=== PATIENT | female | born 1995 | race Caucasian/White ===

== ENCOUNTER 2021-07-05 14:27 | Emergency (ER) | payer MEDICAID, SELFPAY ==
--- NOTE | ~2021-07-05 | CT_ITS ---
EXAMINATION: CT ABDOMEN AND PELVIS WITH CONTRAST CLINICAL INFORMATION: Right upper quadrant/epigastric pain. COMPARISON: None TECHNIQUE: Multidetector volumetric images were obtained from the superior aspect of the liver through the pubic symphysis following administration 85 mL of Omnipaque 350 intravenous contrast. Sagittal and coronal reformatted images were obtained on the technologist's workstation. Oral contrast: No This CT examination was performed using dose optimization techniques as appropriate, variously including the following: *Automated exposure control *Adjustment of mA and/or kV according to patient size (this includes techniques or standardized protocols for targeted exams where dose is matched to indication/reason for exam; i.e. extremities or head) *Use of iterative reconstruction technique DLP: 591 mGy-cm FINDINGS: LUNG BASES: Lung bases are clear. The heart size is normal. LIVER, GALLBLADDER, AND BILIARY TREE: The liver is normal in size, shape, and attenuation. No focal hepatic lesion or biliary ductal dilatation is present. The gallbladder is unremarkable with no evidence of radiopaque gallstones, gallbladder wall thickening, or obvious pericholecystic inflammatory changes. PANCREAS: Unremarkable. SPLEEN: Unremarkable. ADRENAL GLANDS: Unremarkable. KIDNEYS AND URETERS: The kidneys are normal in size, shape, and attenuation. No hydronephrosis, hydroureter, or calculi seen. No perinephric stranding. BLADDER: Unremarkable. GASTROINTESTINAL TRACT: There is scattered stool and gas seen throughout the colon most prominent in the ascending and transverse colon without significant distention. The appendix and the small bowel loops are normal caliber. No inflammatory process seen in the abdomen. There is no free air or free fluid. ABDOMINAL WALL: No significant hernia is appreciated. LYMPH NODES: Normal. VASCULAR: Unremarkable. PELVIC VISCERA: The uterus is retroverted and appears unremarkable. There is small cyst with enhancing thin wall measuring 1.8 x 1.7 cm right adnexa. There is no free fluid. OSSEOUS STRUCTURES: No aggressive lytic or sclerotic process seen. CT/CT abdomen pelvis w con IMPRESSION: No acute intra-abdominal process seen. Fleischner guidelines were followed.
[2021-07-05 14:36] VITALS: BP 131/83; PULSE 80; RESP 16; TEMP 36.4; O2SAT 99; BMI 37.2
--- NOTE | 2021-07-05 16:13 | ED.ABDPAIN ---
HPI - Abdominal Pain General Chief Complaint: Abdominal Pain Stated Complaint: abd pain Time Seen by Provider: 07/05/21 15:59 Source: patient Mode of arrival: ambulatory Limitations: no limitations History of Present Illness HPI narrative: This is a 25-year-old female no significant medical history presents to the emergency department with abdominal pain since last night. Patient tells me that the pain is intermittent in nature, localized to her epigastric region and to her right upper quadrant, she tells me it is a squeezing/stabbing sensation. She tells me before last night she has had episodes like this before however they have never been this severe. She tells me she is also having associated nausea. She still has her appendix and her gallbladder. No history of kidney stones. She denies chest pain, shortness of breath, fevers, chills, chances of , vomiting, weakness he MD elicited complaint: abdominal pain Pertinent past history: none Onset (ago): day(s) (2) Pain Consistency: constant Location: epigastric Severity: moderate Quality: stabbing Radiation: none Migration to: no migration Exacerbating factors: nothing Relieving factors: nothing Associated symptoms: nausea Related Data Previous Rx's Medication Instructions Recorded omeprazole 20 mg capsule,delayed 20 mg PO DAILY #30 cap 07/05/21 release ondansetron 4 mg disintegrating 4 mg PO ONCE PRN #10 tab 07/05/21 tablet Allergies Allergy/AdvReac Type Severity Reaction Status Date / Time No Known Allergies Allergy Unverified 01/04/20 16:47 Review of Systems Review of Systems Constitutional : No Weight loss, No Fever, No Chills, No Fatigue, No Malaise ENT/Mouth : No sore throat, No Rhinorrhea Eyes: No Eye Pain, No Swelling, No Redness Cardiovascular : No Chest Pain, No SOB, No Dyspnea on Exertion, No Orthopnea, No Edema, No Palpitations Respiratory : No Cough, No Sputum, No Wheezing Gastrointestinal : + Nausea, No Vomiting, No Diarrhea, No Constipation, No abdominal Pain, No Hematochezia, No Melena Genitourinary : No Dysuria, No Urinary Frequency, No Hematuria, Musculoskeletal : No joint pain, No Myalgias, No Joint Swelling Skin : No Skin Lesions, No rash Neuro : No Weakness, No Numbness, No Dizziness, No Headache Psych : No Anxiety/Panic, No Depression All other systems reviewed and are negative Yes all other systems are reviewed and are negative [facility] Past Medical History Attestation statement: The following information was validated with the patient. Source: old records reviewed and nursing notes reviewed Medical History (Updated 07/05/21 @ 17:27 by LULU Roland) No known health problems Pre-eclampsia complicating hypertension Social History Social History Advance Directives: No Advance Directives Information Provided: No Patient : No Physical Exam ED Vital Signs: Vital Signs - 24 hr 07/05/21 14:36 07/05/21 16:18 Temperature 97.5 F 98.7 F Pulse Rate 80 67 Respiratory Rate 16 16 Blood Pressure 131/83 134/81 Pulse Oximetry 99 100 BMI result Body Mass Index 37.2 Vital signs stable. Appearance: Alert.? Oriented X3.? No acute distress.? Head: Normocephalic, atraumatic, no step-offs or deformities Eyes: Pupils equal, round and reactive to light.? ENT: Pharynx normal.? Neck: Normal inspection.? Neck supple.? CVS: Normal heart rate and rhythm.? Pulses normal.? Respiratory: No respiratory distress.? Breath sounds normal.? Abdomen: Soft and + tenderness right upper quadrant and epigastric region. Skin: Skin warm and dry.? Normal skin color.? Normal skin turgor.? Extremities: No lower extremity edema.? No calf ttp. 5/5 strength to bilateral upper and lower extremities Back: No midline tenderness, no C-spine tenderness, full range of motion, no CVA tenderness bilaterally Neuro: Oriented X 3.? No motor deficit.? No sensory deficit. CN 2-12 intact Course Reevaluation(s) Reevaluation #1: CBC appears to be at patient's baseline. Chemistry within normal limits. Transaminases normal. Lipase normal. CT of the abdomen and pelvis pending. Urine pending. Will continue to monitor. Time: 16:46 Reevaluation #2: Urine negative urine negative CT of the abdomen and pelvis within normal limits. The CT shows a normal appendix, gallbladder appears normal. At this time patient will be discharged home with omeprazole and Zofran. As this is likely gastritis/gastric ulcers. I have given her follow-up with GI advised her to call if symptoms do not improve. I also advised her to follow-up with her PCP. Time: 18:14 [facility] - Abdominal Pain MDM Narrative Medical decision making narrative: 1616 25 yo f no pmhx presents w/ epigastric pain/RUQ pain since last night, intermittent in nature. Has had previous episodes in the past. PE pain with palpation of epigastric/right upper quadrant. Lungs clear. Regular rate rhythm. No CVA tenderness bilaterally. Likely diagnosis gastritis, unlikely cholecystitis, appendicitis, or pyelo. I will obtain labs, imaging and urine. Medical Records Attestation: I reviewed the patient's medical records. Lab Data Attestation: I reviewed the patient's lab results. Result diagrams: 07/05/21 16:01 07/05/21 16:01 Labs: Lab Results 07/05/21 07/05/21 07/05/21 Range/Units 16:01 16:01 16:01 WBC 10.2 (4.8-10.8) X10*3/uL RBC 4.73 (4.20-5.50) X10*6/uL Hgb 12.4 (12.0-16.0) g/dl Hct 39.3 (37.0-47.0) % MCV 83.1 (80.0-98.0) fL MCH 26.2 L (27.0-33.0) pg MCHC 31.6 (31.0-35.0) g/dl RDW 15.3 (11.0-16.0) % Plt Count 218 (160-400) X10*3/uL MPV 11.4 (9.4-12.3) fL Immature Gran % (Auto) 0.3 (0.0-0.4) % Neut % (Auto) 73.3 H (45-73) % Lymph % (Auto) 19.2 L (20-40) % [place] % (Auto) 6.4 (2-11) % Eos % (Auto) 0.7 (0-4) % Baso % (Auto) 0.1 (0-2) % Lymph # (Auto) 2.0 (1.2-4.9) X10*3/uL [place] # (Auto) 0.7 (0.1-1.2) X10*3/uL Eos # (Auto) 0.1 (0.0-0.4) X10*3/uL Baso # (Auto) 0.0 (0.0-0.2) X10*3/uL Abs Immat Gran (auto) 0.03 (0.00-0.03) X10*3/uL Absolute Neuts (auto) 7.5 (2.0-8.3) x10*3/uL Absolute Nucleated RBC 0.000 (0.0-0.012) X10*3/uL Nucleated RBC % (auto) 0.0 (0.0-0.2) /100WBC Sodium 140 (135-145) mmol/L Potassium 4.0 (3.3-5.1) mmol/L Chloride 106 (96-108) mmol/L Carbon Dioxide 24 (22-29) mmol/L Anion Gap 14 (12-20) BUN 11 (9-16) mg/dL Creatinine 0.79 (0.5-1.4) mg/dL Estim Creat Clear Calc 126.1 Estimated GFR > 60 Random Glucose 91 (60-115) mg/dL Calcium 9.6 (8.4-10.2) mg/dL Magnesium 1.9 (1.6-2.6) mg/dL Total Bilirubin 0.4 (0.0-1.0) mg/dL AST 16 (5-31) U/L ALT 21 (0-31) U/L Alkaline Phosphatase 115 (39-117) U/L Total Protein 7.5 (6.5-8.0) g/dL Albumin 4.5 (3.5-5.0) g/dL Lipase 17 (8-78) U/L Urine Color Urine Appearance Urine pH (5.0-8.0) Ur Specific [place] (1.005-1.025) Urine Protein (NEG-TRACE) MG/DL Urine Glucose (UA) (NEG) MG/DL Urine Ketones (NEG) MG/DL Urine Blood (NEG) Urine Nitrite (NEG) Ur Leukocyte Esterase (NEG) Urine RBC (0) /HPF Urine WBC (0-4) /HPF Ur Squamous Epith Cells /LPF Urine Bacteria /LPF Urine Test (NEGATIVE) COVID-19 (ASHLEY) Negative (Negative) COVID-19 Clin Com See Note 07/05/21 07/05/21 Range/Units 16:37 16:37 WBC (4.8-10.8) X10*3/uL RBC (4.20-5.50) X10*6/uL Hgb (12.0-16.0) g/dl Hct (37.0-47.0) % MCV (80.0-98.0) fL MCH (27.0-33.0) pg MCHC (31.0-35.0) g/dl RDW (11.0-16.0) % Plt Count (160-400) X10*3/uL MPV (9.4-12.3) fL Immature Gran % (Auto) (0.0-0.4) % Neut % (Auto) (45-73) % Lymph % (Auto) (20-40) % [place] % (Auto) (2-11) % Eos % (Auto) (0-4) % Baso % (Auto) (0-2) % Lymph # (Auto) (1.2-4.9) X10*3/uL [place] # (Auto) (0.1-1.2) X10*3/uL Eos # (Auto) (0.0-0.4) X10*3/uL Baso # (Auto) (0.0-0.2) X10*3/uL Abs Immat Gran (auto) (0.00-0.03) X10*3/uL Absolute Neuts (auto) (2.0-8.3) x10*3/uL Absolute Nucleated RBC (0.0-0.012) X10*3/uL Nucleated RBC % (auto) (0.0-0.2) /100WBC Sodium (135-145) mmol/L Potassium (3.3-5.1) mmol/L Chloride (96-108) mmol/L Carbon Dioxide (22-29) mmol/L Anion Gap (12-20) BUN (9-16) mg/dL Creatinine (0.5-1.4) mg/dL Estim Creat Clear Calc Estimated GFR Random Glucose (60-115) mg/dL Calcium (8.4-10.2) mg/dL Magnesium (1.6-2.6) mg/dL Total Bilirubin (0.0-1.0) mg/dL AST (5-31) U/L ALT (0-31) U/L Alkaline Phosphatase (39-117) U/L Total Protein (6.5-8.0) g/dL Albumin (3.5-5.0) g/dL Lipase (8-78) U/L Urine Color YELLOW Urine Appearance HAZY Urine pH 6.5 (5.0-8.0) Ur Specific [place] 1.020 (1.005-1.025) Urine Protein NEG (NEG-TRACE) MG/DL Urine Glucose (UA) NEG (NEG) MG/DL Urine Ketones 5 (NEG) MG/DL Urine Blood NEG (NEG) Urine Nitrite NEG (NEG) Ur Leukocyte Esterase NEG (NEG) Urine RBC 0 (0) /HPF Urine WBC 0-2 (0-4) /HPF Ur Squamous Epith Cells 2+ /LPF Urine Bacteria 1+ /LPF Urine Test NEGATIVE (NEGATIVE) COVID-19 (ASHLEY) (Negative) COVID-19 Clin Com Critical Care Time Critical Care Time Critical Care Time: No Discharge Plan Discharge Clinical Impression: Epigastric abdominal pain Patient Disposition: Home, Self-Care Instructions: Diet for Stomach Ulcers and Gastritis (ED), Abdominal Pain (ED), Epigastric Pain (ED) Additional Instructions: Take your medications as prescribed. If you were prescribed antibiotics today, it is important that you take your medication to their entirety, do not skip any doses, do not finish them early. Follow-up with your primary care provider this week. Please follow up with GI if this issue continues. As you may require further imaging/lab work. Please follow a bland diet. Return to the emergency department with new or worsening symptoms. Such as fevers, chills, chest pain, shortness of breath, nausea, vomiting, dizziness, headache, vision changes, lethargy In case of emergency call 911 Prescriptions: New omeprazole 20 mg capsule,delayed release(DR/EC) 20 mg PO DAILY Qty: 30 0RF ondansetron 4 mg tablet,disintegrating 4 mg PO ONCE PRN (Reason: nausea and vomiting) Qty: 10 0RF Referrals: Sundar Griffith MD [Physician] - 1 week Physician,Katiuska J [Primary Care Provider] - 2 days Stand Alone Forms: Work/School Release
[2021-07-05 16:18] VITALS: BP 134/81; PULSE 67; RESP 16; TEMP 37.1; O2SAT 100
[2021-07-05 16:21] LABS: MANUAL DIFF FLAG NO
[2021-07-05 16:23] LABS: Basophils Percent Auto 0.1 % (0-2); Eosinophils Absolute Auto 0.1 X10*3/uL (0.0-0.4); Eosinophils Percent Auto 0.7 % (0-4); Hematocrit 39.3 % (37.0-47.0); Hemoglobin 12.4 g/dl (12.0-16.0); Imm Gran Abs Auto 0.03 X10*3/uL (0.00-0.03); Imm Gran Pct Auto 0.3 % (0.0-0.4); Lymphocytes Percent Auto 19.2 % (20-40); Mean Corpuscular HGB Conc 31.6 g/dl (31.0-35.0); Mean Corpuscular Hemoglobin 26.2 pg (27.0-33.0); Mean Corpuscular Volume 83.1 fL (80.0-98.0); Mean Platelet Volume 11.4 fL (9.4-12.3); Monocytes Absolute Auto 0.7 X10*3/uL (0.1-1.2); Monocytes Percent Auto 6.4 % (2-11); Neutrophils Absolute Auto 7.5 x10*3/uL (2.0-8.3); Neutrophils Percent Auto 73.3 % (45-73); Platelet Count 218 X10*3/uL (160-400); Red Blood Count 4.73 X10*6/uL (4.20-5.50); Red Cell Distribution Width 15.3 % (11.0-16.0); White Blood Count 10.2 X10*3/uL (4.8-10.8)
[2021-07-05 16:36] LABS: COVID-19 Test Negative (Negative); IDNOW Serial# 16C4AD1C
[2021-07-05 16:38] LABS: Alanine Aminotransferase 21 U/L (0-31); Albumin Level 4.5 g/dL (3.5-5.0); Alkaline Phosphatase 115 U/L (39-117); Anion Gap 14 (12-20); Aspartate Amino Transferase 16 U/L (5-31); Bilirubin Total 0.4 mg/dL (0.0-1.0); Blood Urea Nitrogen 11 mg/dL (9-16); Calcium 9.6 mg/dL (8.4-10.2); Carbon Dioxide 24 mmol/L (22-29); Chloride 106 mmol/L (96-108); Creatinine Clr Calc Pharmacy 126.1; Estimated Glomerular Filt Rate > 60; Glucose Random 91 mg/dL (60-115); Lipase 17 U/L (8-78); Magnesium 1.9 mg/dL (1.6-2.6); Sodium 140 mmol/L (135-145); Total Protein 7.5 g/dL (6.5-8.0)
[2021-07-05] MEDS: PHENobarb/Hyoscy/Atropine/Scop 10 ML ELIXIR PO (16:48)
[2021-07-05] MEDS: Magnesium Hydrox/Alum Hydrox 30 ML ORAL.SUSP PO (16:48)
[2021-07-05] MEDS: ondansetron HCL 4 MG/2 ML VIAL IVPUSH (16:48)
[2021-07-05 16:49] LABS: Appearance Urine HAZY; Color Urine YELLOW; Glucose Urine UA NEG (NEG); Leukocyte Esterase Urine NEG (NEG); Nitrite Urine NEG (NEG); PH 6.5 (5.0-8.0); Urine Blood NEG (NEG); Urine Ketones 5 MG/DL (NEG); Urine Protein NEG (NEG-TRACE)
[2021-07-05 16:51] LABS: UPreg QC Valid YES; Urine Pregnancy NEGATIVE (NEGATIVE)
[2021-07-05 16:56] LABS: Bacteria Urine 1+ /LPF; RBC Urine 0 /HPF (0); Squamous Epithelial Cell Urine 2+ /LPF; WBC Urine 0-2 /HPF (0-4)
[2021-07-05] MEDS: iohexoL 350 MG/ML 100 ML INFUS..BTL 85 ML IV (17:32)
== END 2021-07-05 18:26 | disposition home or self-care (01) ==
PROVIDERS: Physician Assistant; Emergency Provider Emergency Medicine
DX: R10.13 Epigastric pain (principal); Z20.822 Contact with and (suspected) exposure to COVID-19; R11.0 Nausea
CPT/HCPCS: 74177; 80053; 81001; 81025; 83690; 83735; 85025; 87635; 96374; 99284; 99285; J2405; Q9967

== ENCOUNTER 2024-08-24 19:15 | Emergency (ER) | payer OTHER, SELFPAY ==
--- NOTE | ~2024-08-24 | US_ITS ---
CLINICAL HISTORY: ?hydro US retroperitoneum Comparison: None Findings: Right kidney normal size and echotexture, 10.7cm length. No hydronephrosis. Normal color flow. Left kidney normal size and echotexture, 10.6 cm in length. No hydronephrosis. Normal color flow. By right lateral renal cortex echotexture and thickness is normal. Cortex thickness is 12 mm. No ultrasound evidence of renal calculi. Impression: Unremarkable kidney ultrasound. This document has been electronically signed by: Vijay Cancino MD on 08/24/2024 20:49:19
--- NOTE | 2024-08-24 19:19 | ED_ITS ---
HPI - General Adult General Chief complaint: Urogenital-Female Stated complaint: UTI possible kidney infection??? from UC Time Seen by Provider: 08/24/24 20:17 Source: patient Limitations: no limitations History of Present Illness ED Provider: Susan Patel PA-C HPI narrative: 28-year-old female presents with dysuria x 4 days. Associated mid back discomfort that has bilateral, right greater than left. Associated nausea initially, that has since subsided. Denies history of kidney stones, hematuria, or abdominal discomfort. Related Data Previous Rx's ?Medication ?Instructions ?Recorded omeprazole 20 mg capsule,delayed 20 mg PO DAILY #30 caps 07/05/21 release ondansetron 4 mg disintegrating 4 mg PO ONCE PRN nausea and 07/05/21 tablet vomiting #10 tabs cephalexin 500 mg capsule 500 mg PO BID #13 caps 08/24/24 phenazopyridine 200 mg tablet 200 mg PO TID PRN pain 3 days #10 08/24/24 (Pyridium) tabs Allergies Allergy/AdvReac Type Severity Reaction Status Date / Time No Known Allergies Allergy Verified 08/24/24 19:21 Review of Systems 2 Review of Systems: Yes all other systems are reviewed and are negative Constitutional: Constitutional: Denies fatigue and Denies fever(s) Cardiovascular: Cardiovascular: Denies chest pain and Denies dyspnea Respiratory: Respiratory: Denies cough and Denies dyspnea Gastrointestinal: Gastrointestinal: Denies abdominal pain, Reports nausea and Denies vomiting Genitourinary: Genitourinary: Reports dysuria Musculoskeletal: Musculoskeletal: Reports back pain Endocrine: Endocrine: Denies fatigue [facility] Past Medical History Attestation statement: The following information was validated with the patient. Medical History (Updated 08/24/24 @ 22:28 by LULU Leung) Pre-eclampsia complicating hypertension No known health problems Social History Social History Smoked in Last 30 Days: No Use of substances other than those prescribed or required for medical reasons: No Advance Directives: No Advance Directives Information Provided: No Patient : No Physical Exam ED Vital Signs: Vital Signs - 24 hr 08/24/24 19:20 Temperature 98.1 F Pulse Rate 84 Respiratory Rate 20 Blood Pressure 119/88 Pulse Oximetry 98 Oxygen Delivery Method Room Air BMI result Body Mass Index 39.5 Const Other: Alert well-appearing Orientation/consciousness: patient oriented x3 Resp Effort & Inspection: normal respiratory effort Cardio Other: Normal peripheral perfusion Back/Spine/Pelvis Other: Some degree of CVA tenderness bilaterally Skin Other: Warm dry no rash Neuro General: patient oriented x3, gait normal, no focal motor deficits and CN's II- XI intact bilaterally Psych Other: Cooperative Course Course Course Narrative: This is a rapid medical exam performed by Chito Jeffries NP: Additional HPI, ROS, PE not included below will be deferred to primary provider. 28 yo female without significant PMHx of presents to ED from for UTI concerns. recommended further evaluation from ED to R/O pyelonephritis. Patient states she has been having urinary symptoms x4 days. States yesterday she began experiencing B/L pain of her abdomen. States when provider at tapped on her back she had pain on the right side. She states she has had nausea since wednesday that has worsened over the past 48 hours. States she is currently on her menses and cannot tell if there is gross blood in her urine. Denies, vomiting, fever. PE: A&O x3, no acute distress, Plan:Labs, B/L renal US, UA, HCG quant Medications Administered Discontinued Medications Generic Name Dose Route Start Last Admin Trade Name Freq PRN Reason Stop Dose Admin Cephalexin HCl 500 mg 08/24/24 22:01 08/24/24 22:09 Cephalexin 500 Mg Capsule PO 08/24/24 22:02 500 mg ONCE ONE Administration Phenazopyridine HCl 200 mg 08/24/24 22:03 08/24/24 22:09 Phenazopyridine Hcl 200 Mg Tablet PO 08/24/24 22:04 200 mg ONCE ONE Administration Medical Decision Making Medical Decision Making [facility] Narrative: 28-year-old female presents with dysuria x 4 days. Associated mid back discomfort that has bilateral, right greater than left. Associated nausea initially, that has since subsided. Denies history of kidney stones, hematuria, or abdominal discomfort. No chronic issues History: Per patient I have considered the following differential diagnoses: UTI, pyelonephritis, renal colic Plan: Patient is not having systemic symptoms of fever or active vomiting, overall her exam was benign, screening labs completed, we just need a urine sample. A renal ultrasound was ordered from triage as well that is pending. I have independently reviewed the following tests: Labs: No leukocytosis, not anemic, no electrolyte abnormality, not , urine infected Renal ultrasound:Findings: Right kidney normal size and echotexture, 10.7cm length. No hydronephrosis. Normal color flow. Left kidney normal size and echotexture, 10.6 cm in length. No hydronephrosis. Normal color flow. By right lateral renal cortex echotexture and thickness is normal. Cortex thickness is 12 mm. No ultrasound evidence of renal calculi. Impression: Unremarkable kidney ultrasound. Lab Data 08/24/24 19:30 08/24/24 19:30 Labs: Lab Results 08/24/24 08/24/24 Range/Units 19:30 20:49 WBC 10.4 (4.8-10.8) X10*3/uL RBC 4.55 (4.20-5.50) X10*6/uL Hgb 12.6 (12.0-16.0) g/dl Hct 37.7 (37.0-47.0) % MCV 82.9 (80.0-98.0) fL MCH 27.7 (27.0-33.0) pg MCHC 33.4 (31.0-35.0) g/dl RDW 14.6 (11.0-16.0) % Plt Count 228 (160-400) X10*3/uL MPV 11.1 (9.4-12.3) fL Immature Gran % (Auto) 0.4 (0.0-0.4) % Neut % (Auto) 62.2 (45-73) % Lymph % (Auto) 26.3 (20-40) % [place] % (Auto) 9.2 (2-11) % Eos % (Auto) 1.4 (0-4) % Baso % (Auto) 0.5 (0-2) % Lymph # (Auto) 2.7 (1.2-4.9) X10*3/uL [place] # (Auto) 1.0 (0.1-1.2) X10*3/uL Eos # (Auto) 0.2 (0.0-0.4) X10*3/uL Baso # (Auto) 0.1 (0.0-0.2) X10*3/uL Abs Immat Gran (auto) 0.04 H (0.00-0.03) X10*3/uL Absolute Neuts (auto) 6.5 (2.0-8.3) x10*3/uL Absolute Nucleated RBC 0.000 (0.0-0.012) X10*3/uL Nucleated RBC % (auto) 0.0 (0.0-0.2) /100WBC Sodium 142 (135-145) mmol/L Potassium 3.9 (3.3-5.1) mmol/L Chloride 108 (96-108) mmol/L Carbon Dioxide 26 (22-29) mmol/L Anion Gap 12 (12-20) BUN 12 (9-16) mg/dL Creatinine 0.77 (0.5-1.4) mg/dL Estim Creat Clear Calc 130.2 Estimated GFR > 60 Random Glucose 90 (60-115) mg/dL Calcium 9.5 (8.4-10.2) mg/dL Total Bilirubin 0.3 (0.0-1.0) mg/dL AST 23 (5-31) U/L ALT 24 (0-31) U/L Alkaline Phosphatase 102 (39-117) U/L Total Protein 7.7 (6.5-8.0) g/dL Albumin 4.3 (3.5-5.0) g/dL Beta HCG, Quant < 2 mIU/mL Urine Color Yellow Urine Appearance Clear Urine pH 7.0 (5.0-9.0) Ur Specific [place] 1.020 (1.005-1.025) Urine Protein 100 (2+) H (Neg-Trace) mg/dL Urine Glucose (UA) Negative (Negative) mg/dL Urine Ketones Negative (Negative) mg/dL Urine Blood Large (3+) H (Negative) Urine Nitrite Negative (Negative) Ur Leukocyte Esterase Moderate (2+) H (Negative) Urine RBC >20 H (0-2) /HPF Urine WBC >50 H (0-5) /HPF Ur Squamous Epith Cells 0-2 (0-2) /HPF Urine Bacteria 4+ (None Seen) Hyaline Casts 0-2 (0-2) /LPF Discharge Plan Discharge Clinical Impression: Urinary tract infection, Back pain, thoracic Patient Disposition: Home, Self-Care Instructions: Urinary Tract Infection in Women (ED), Thoracic Pain (ED) Additional Instructions: The ultrasound of your kidneys was normal, you have a urinary tract infection. See home care instructions. For your mid back pain, which is not related to the kidneys, you can use [id number] ibuprofen 600 mg taken every 6 hours with food. Take the cephalexin as directed this is an antibiotic to treat the urinary tract infection. Use the Pyridium as needed for urinary pain, to note this medication will cause your urine to become fluorescent orange, these symptoms will pass. Be sure to increase your water intake, drinking 96 oz of water daily. Follow up with your primary care provider as needed. Prescriptions: New cephalexin 500 mg capsule 500 mg PO BID Qty: 13 0RF phenazopyridine [Pyridium] 200 mg tablet 200 mg PO TID PRN (Reason: pain) 3 Days Qty: 10 0RF No Action omeprazole 20 mg capsule,delayed release(DR/EC) 20 mg PO DAILY Qty: 30 0RF ondansetron 4 mg tablet,disintegrating 4 mg PO ONCE PRN (Reason: nausea and vomiting) Qty: 10 0RF Stand Alone Forms: Work/School Release Print Language: Georgian
[2024-08-24 19:20] VITALS: BP 119/88; PULSE 84; RESP 20; TEMP 36.7; O2SAT 98; BMI 39.5
[2024-08-24 19:35] LABS: MANUAL DIFF FLAG NO
--- OUTSIDE RECORDS SUMMARY | 2024-08-24 19:48 | XMS_ITS | Encounter Summary ---
Author Organization [facility] Address [address] [place], [place] [id number] Phone Care Team Providers Care Dog Hair Clipper Name Role Phone Unavailable Primary Care Provider Unavailabl e Encounter Details Date Type Department Care Team (Late st Contact Info) Description 03/25/2011 Documentation [facility] [place] [facility] [address] [place] [address] Family Medicine, Physician [facility] [place] [address] Social History Tobacco Use Types Packs/Day Years Used Date Smoking Tobacco: Never Assessed Comments Unknown Sex and Gender Information Value Date Recorded Sex Assigned at Not on file Legal Sex Female 5:01 PM EDT Gender Identity Not on file Sexual Orientation Not on file documented as of this encounter Plan of Treatment Not on file documented as of this encounter Visit Diagnoses Not on filedocumented in this encounter Care Teams Dog Hair Clipper Relationship Specialty Start Date End Date [facility] Doctor'S Assistant Lab 10/11/18 documented as of this encounter
--- OUTSIDE RECORDS SUMMARY | 2024-08-24 19:48 | XMS_ITS | Encounter Summary ---
Author Organization [facility] Address [address] [place] [address] Phone Care Team Providers Care Outsole Caser Name Role Phone Unavailable Primary Care Provider Unavailabl e Encounter Details Date Type Department Care Team (Late st Contact Info) Description 12/03/2016 Conversion Encounter [facility] - [address] [address] Social History Tobacco Use Types Packs/Day Years Used Date Smoking Tobacco: Never Comments:Never smoker Comments Unknown Sex and Gender Information Value Date Recorded Sex Assigned at Not on file Legal Sex Female 5:01 PM EDT Gender Identity Not on file Sexual Orientation Not on file documented as of this encounter Plan of Treatment Not on file documented as of this encounter Visit Diagnoses Not on filedocumented in this encounter Care Teams Outsole Caser Relationship Specialty Start Date End Date [facility] Caster Lab 10/11/18 documented as of this encounter
--- OUTSIDE RECORDS SUMMARY | 2024-08-24 19:48 | XMS_ITS | Clinical Summary ---
Author Organization [facility] Address [address] [place], [place] [id number] Phone Care Team Providers Care Trimmer Meat Name Role Phone Unavailable Primary Care Provider Unavailabl e Allergies No known active allergies Medications ibuprofen 800 MG tablet Take 800 mg by mouth as needed. Active levETIRAcetam 1000 MG tablet Take 1,000 mg by mouth 2 (two) times a day. 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 CT showed hemorrhagic stroke left temporal lobe with left sided sinus thrombosis (distal transverse, sigmoid & jugular bulb & vein of Dioni) Cerebrovascular accident (CV A) due to thrombosis of cerebral artery 09/20/2018 Overview (10/06/2018): 08/23/18: Presented to ER with mental status changes with concern for eclampsia with elevated BP. CT showed hemorrhagic stroke left temporal lobe with left sided sinus thrombosis (distal transverse, sigmoid & jugular bulb & vein of Dioni). ? Due to vasculopathy Followed by [facility] (Tucker LAWSON & Dr Anny Apodaca) Needs FU MRI & MRV 11/2018. Referred to Hematology for vasculopathy eval 09/19/18: seen by Dr Perez - [facility] Hematology. Transitioned from apixaban (not the standard of care for Cerebral Venous Thrombosis) to Lovenox to Coumadin. She should be anticoagulated for 6 months ( assuming her hypercoagulability work up is negative) Advised to avoid Estrogen containing BC. Also advised to avoid for near future. When Pt chooses to get again she will need anticoagulation throughout & x 7 weeks Assessment & Plan (10/06/2018 8:00 AM EDT): Has appt with Coumadin clinic today Since patient is now 23 years of age & is going to need to have close primary care followup will transition her to Adult medical care CHEMO - Pt will need to get established soon Seizure as late effect of cerebrovascular accide nt (CVA) 09/20/2018 Overview (09/20/2018): 08/2018: due eclampsia with hemorrhagic stroke following demise medication plan (Keppra and Apixaban) has neurology appt at [facility] on 10/13/18 Assessment & Plan (10/06/2018 7:52 AM EDT): No seizures Fatigue with Keppra Has appt with neuro next week 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 Viki. Mi's confirmed ligamentous laxity but since no orthopedic issues no further eval needed. If any issues can see genetics for testing for E-D. Immunizations Immunization Administration Dates Next Due DTaP 5 03/10/2002, 0,05/21/1998,02/26,1997 HPV, Quadrivalent 02/25/2011,05/08/2010,03/04/20 10 Hep A, ped/adol 03/05/2015,03/01/2014 Hep B, ped/adol 05/21/1998,1997,1997 Hib (PRP-T) 01/10/1999, 9,02/26/1998,12/27 IPV 03/10/2002,06/25/1999 Influenza Split 02/27/2013, 2,02/25/2011,03/04 Influenza, injectable, quadrivalent 01/09/2016,1 05/05/2014,03/01/2014 Influenza, injectable, quadr ivalent, preservative free 03/14/2018,07/12/2017 Influenza, injectable, trivalent 05/28/2009 MMR 03/10/2002,10/07/1998 Meningococcal Conj (Menactra) MCV4P 03/05/2015,1 05/04/2009 OPV 02/26/1998,1997 Td (adult) (Tenivac), 5 Lf t etanus toxoid, PF, adsorbed 11/23/2017 Tdap 01/23/2010 Varicella 03/04/2010,01/10/1999 Family History Medical History Relation Name Comments Asthma Father Hyperlipidemia Father Hypertension Mother Relation Name Status Comments Brother 1 Alive Brother: Alive and well, Asthma, Alive and well Brother 2 Alive Brother: Alive and well, Asthma, Alive and well Father Alive Father: Hyperli pidemia, Asthma Mother Alive Mother: Renauds , Hypertension Other No family histo ry of Migraines, No family history of Seizure disorder, No family history of Autism, No family history of Strabismus/amblyopia, No family history of Sudden /ND under age 55, No family history of Asthma, No family history of ADD/ADHD, No family history of Developmental dislocation of hip, No family history of Diabetes mellitus, No family history of Elevated cholesterol, No family history of Obesity, No family history of Deafness Paternal Grandmother Paterna l grandmother: Diabetes mellitus Social History Tobacco Use Types Packs/Day Years Used Date Smoking Tobacco: Never Smokeless Tobacco: Never Comments:Never smoker Alcohol Use Standard Drinks/Week Comments Not Currently 0 (1 standard drink = 0.6 oz pur e alcohol) No drinks in ~ 10 months Hunger/Food Answer Date Recorded No 10/06/2018 Stable Housing Answer Date Recorded 0 10/06/2018 Transportation Concerns Answer Date Rec orded No 10/06/2018 Hazards in Home Answer Date Recorded No 10/06/2018 Financing Utilities Answer Date Recorde d No 10/06/2018 Safety at Home Answer Date Recorded No 10/06/2018 Outside Support Answer Date Recorded No 10/06/2018 Understanding Health Concerns Answer Da te Recorded No 10/06/2018 Financing Health Concerns Answer Date R ecorded No 10/06/2018 Missing School or Work Answer Date Jesus rded No 10/06/2018 Comments No Sex and Gender Information Value Date Recorded Sex Assigned at Not on file Legal Sex Female 5:01 PM EDT Gender Identity Not on file Sexual Orientation Not on file Last Filed Vital Signs Vital Sign Reading Time Taken Comments Blood Pressure 118/80 10/06/2018 7:45 AM EDT Pulse 80 10/06/2018 7:45 AM EDT Temperature 36.1 ??C (96.9 ??F) 10/06/2018 7:45 AM ED T Respiratory Rate 16 10/06/2018 7:45 AM EDT Oxygen Saturation - - Inhaled Oxygen Concentration - - Weight 91 kg (200 lb 9.6 oz) 10/06/2018 7:45 AM EDT Height 162.6 cm (5' 4 ) 10/06/2018 7:45 AM EDT Body Mass Index 34.43 10/06/2018 7:45 AM EDT Plan of Treatment Health Maintenance Due Date Last Done Comments Influenza Vaccines (#1) 2023 03/14/20 18, 07/12/2017, 01/09/2016, Additional history exists COVID-19 Vaccine ( season) 2023 DTaP,Tdap,and Td Vaccines (8 - Td or Tdap) 11/24/2027 11/23/2017, 01/23/2010, 03/10/2002, Additional history exists Hepatitis B Vaccines Completed 05/21/1998, 1997, 1997 HIB Vaccines Completed 01/10/1999, 05/1998, 02/26/1998, Additional history exists IPV Vaccines Completed 03/10/2002, 11/1999, 02/26/1998, Additional history exists MMR Vaccines Completed 03/10/2002, 10/07/1998 Varicella Vaccines Completed 03/04/2010, 01/10/1999 HPV Vaccines Completed 02/25/2011, 04/20, 03/04/2010 Hepatitis A Vaccines Completed 03/05/2015, 03/01/20 14 Meningococcal Vaccine Completed 03/05/2015, 010 Men B Vaccine Aged Out No longer elig ible based on patient's age to complete this topic Pneumococcal Vaccine Aged Out No long er eligible based on patient's age to complete this topic Procedures * Due to [place] [email or web address] law, this organization might not be sharing sensitive test results. Procedure Name Priority Date/Time Associated Diagnosis Comments CHLAMYDIA AND GONORRHEA, AMPLIFIED Routine 10/06/2018 8:57 AM EDT Screening examination for bacterial and spirochetal disease from Last 3 Months or Most Recently Relevant to Health Maintenance Results * Due to [place] [email or web address] law, this organization might not be sharing sensitive test results. * Chlamydia and Gonorrhoea, Amplified (10/06/2018 8:57 AM EDT) Chlamydia Trachomatis, DNA Probe NEGATIVE (NEG) [facility] Comment: No Chlamydia Trachomatis RNA detected in this patient's sample ? (REFERENCE RANGE/NORMAL VALUE: NOT DETECTED) ? Note: This test uses infrastructure administrator- mediated amplification method to detect rRNA from C. Trachomatis URINE GC AMP PROBE NEGATIVE (NEG) [facility] Comment: No Neisseria Gonorrhoeae RNA detected in this patient's sample ? (REFERENCE RANGE/NORMAL VALUE: NOT DETECTED) ? NOTE: This test uses infrastructure administrator-mediated amplification method to detect rRNA from N.Gonorrhoeae. A negative result does not preclude infection. In the case of a negative urine result, testing of an endocervical(female) or urethral (male) specimen is recommended if there is high clinical suspicion of infection. Due to very high sensitivity of Nucleic Acid Amplification Test, false positive results may occur. Therefore, specimen handling is extremely important. In patients in whom the disease is unlikely, additional sample for testing should be considered after an initial positive result. The performance characteristics of this test have not been evaluated in children. The Aptima Combo2 assay is not intended for the evaluation of suspected sexual abuse or for other medico-legal indications. The ordering provider should assess if the patient had consensual sex without risk of sexual abuse. Consult the [facility] if needed. Contact phone number . Therapeutic failure or success cannot be determined with the Aptima Combo2 assay since nucleic acid may persist following appropriate antimicrobial therapy. The Centers for Disease Control and Prevention (CDC) recommends confirmatory retesting using culture or a different nucleic acid amplification test when positive results occur, if indicated. Testing performed or reported by [facility], a Service of [facility], [address] [place] [address] Urine 10/06/2018 8:57 AM EDT 10/06/2018 10:17 AM EDT us Brittany Longo MD LAB MICROBIOLOGY - GENERAL ORDER SHRUTHI Final Result [facility] from Last 3 Months or Most Recently Relevant to Health Maintenance Care Teams Trimmer Meat Relationship Specialty Start Date End Date [facility] Grievance And Appeals Specialist Lab 10/11/18
--- OUTSIDE RECORDS SUMMARY | 2024-08-24 19:48 | XMS_ITS | Encounter Summary ---
Author Organization [facility] Address [address] [place], [place] [id number] Phone Care Team Providers Care Camp Attendant Name Role Phone Unavailable Primary Care Provider Unavailabl e Encounter Details Date Type Department Care Team (Late st Contact Info) Description 05/08/2010 Documentation [facility] [place] [place] Family Medicine [address] [place] [address] Family Medicine, Physician [facility] [place] [address] Social History Tobacco Use Types [...] on filedocumented in this encounter Care Teams Camp Attendant Relationship Specialty Start Date End Date [facility] Shear Grinder Operator Helper Lab 10/11/18 documented as of this encounter
[2024-08-24 19:50] LABS: Alanine Aminotransferase 24 U/L (0-31); Albumin Level 4.3 g/dL (3.5-5.0); Alkaline Phosphatase 102 U/L (39-117); Anion Gap 12 (12-20); Aspartate Amino Transferase 23 U/L (5-31); Bilirubin Total 0.3 mg/dL (0.0-1.0); Blood Urea Nitrogen 12 mg/dL (9-16); Calcium 9.5 mg/dL (8.4-10.2); Carbon Dioxide 26 mmol/L (22-29); Chloride 108 mmol/L (96-108); Creatinine Clr Calc Pharmacy 130.2; Estimated Glomerular Filt Rate > 60; Glucose Random 90 mg/dL (60-115); Potassium 3.9 mmol/L (3.3-5.1); Sodium 142 mmol/L (135-145); Total Protein 7.7 g/dL (6.5-8.0)
[2024-08-24 20:00] VITALS: BP 116/77; PULSE 87; RESP 20; TEMP 36.7; O2SAT 97
[2024-08-24 20:00] LABS: HCG Quantitative < 2 mIU/mL
[2024-08-24 20:18] LABS: Basophils Absolute Auto 0.1 X10*3/uL (0.0-0.2); Basophils Percent Auto 0.5 % (0-2); Eosinophils Absolute Auto 0.2 X10*3/uL (0.0-0.4); Eosinophils Percent Auto 1.4 % (0-4); Hematocrit 37.7 % (37.0-47.0); Hemoglobin 12.6 g/dl (12.0-16.0); Imm Gran Abs Auto 0.04 X10*3/uL (0.00-0.03); Imm Gran Pct Auto 0.4 % (0.0-0.4); Lymphocytes Absolute Auto 2.7 X10*3/uL (1.2-4.9); Lymphocytes Percent Auto 26.3 % (20-40); Mean Corpuscular HGB Conc 33.4 g/dl (31.0-35.0); Mean Corpuscular Hemoglobin 27.7 pg (27.0-33.0); Mean Corpuscular Volume 82.9 fL (80.0-98.0); Mean Platelet Volume 11.1 fL (9.4-12.3); Monocytes Percent Auto 9.2 % (2-11); Neutrophils Absolute Auto 6.5 x10*3/uL (2.0-8.3); Neutrophils Percent Auto 62.2 % (45-73); Platelet Count 228 X10*3/uL (160-400); Red Blood Count 4.55 X10*6/uL (4.20-5.50); Red Cell Distribution Width 14.6 % (11.0-16.0); White Blood Count 10.4 X10*3/uL (4.8-10.8)
[2024-08-24 20:56] LABS: Appearance Urine Clear; Color Urine Yellow; Glucose Urine UA Negative (Negative); Leukocyte Esterase Urine Moderate (2+) (Negative); Nitrite Urine Negative (Negative); UMIC TRIGGER UACC YES; Urine Blood Large (3+) (Negative); Urine Ketones Negative (Negative); Urine Protein 100 (2+) mg/dL (Neg-Trace)
[2024-08-24 21:08] LABS: Bacteria Urine 4+ (None Seen); Hyaline Casts Urine 0-2 /LPF (0-2); RBC Urine >20 /HPF (0-2); Squamous Epithelial Cell Urine 0-2 /HPF (0-2); UACC Culture Trigger YES; WBC Urine >50 /HPF (0-5)
[2024-08-24] MEDS: Phenazopyridine HCL 200 MG TABLET PO (22:09)
[2024-08-24] MEDS: cephALEXin 500 MG CAPSULE PO (22:09)
[2024-08-24 22:40] VITALS: BP 131/93; PULSE 68; RESP 18; TEMP 36.8; O2SAT 97
== END 2024-08-24 22:41 | disposition home or self-care (01) ==
PROVIDERS: Registered Nurse Emergency; Emergency Provider Emergency Medicine
DX: N39.0 Urinary tract infection, site not specified (principal); M54.6 Pain in thoracic spine; R30.0 Dysuria; Z79.899 Other long term (current) drug therapy
CPT/HCPCS: 36415; 76775; 80053; 81001; 81003; 84702; 85025; 87086; 99284

== ENCOUNTER → 2024-08-24 19:21 | Outpatient (BNV) | payer SELFPAY | PROVIDERS: Visit Provider Radiology Diagnostic Radiology | DX: N39.0 Urinary tract infection, site not specified (principal) | CPT/HCPCS: 76775 ==

== ENCOUNTER 2025-01-17 11:26 | Outpatient (AMB) | payer OTHER, SELFPAY ==
[2025-01-17 11:29] VITALS: BP 100/70; PULSE 76; RESP 18; TEMP 36.3; O2SAT 96; BMI 42.0
--- NOTE | 2025-01-17 11:29 | A.OFFPC_ITS ---
Vital Signs 01/17/25 11:29 Height 5 ft 4 in Weight 245 lb BMI 42.0 BP 100/70 Blood Pressure Location Lt brachial Position Sitting Respiration 18 Pulse 76 Pulse Source Pulse Oximeter Temp 97.3 F Temp Source Temporal Artery Scan Pulse Oximetry (%) 96 Oxygen Delivery Method Room Air Intake Visit Reasons: establish care Prefabricator Required: No Accompanied by: Self / Same As Patient Allergies No Known Allergies Allergy (Verified 01/17/25 11:44) Medication List - Last Reconciled 01/17/25 by Karolyn Teixeira PA-C No Known Home Meds Tobacco use date assessed: 01/17/25 Dental Screening Dental Screen Date: 01/17/25 Did you have a dental visit in the last 12 months?: No Did you have a dental problem in the last 6 months where you did not have access to dental care?: No Was dental information given to patient?: No HPI establish care HPI Details 29 year old female coming to the office for the first time. Presenting with multiple health concerns including acid reflux, seizure disorder, chest pain, hair loss, and umbilical discharge. Reports severe, random stomach pain with nausea and vomiting, last occurring in August. Relief is achieved with Mylanta, suggesting acid reflux. 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 No seizures since 2019. Plan to obta in previous records. Preeclampsia Experienced during , associated with seizures. She reports intermittent chest pain with sudden movements are deep breaths typically lasting intermittently throughout the day. Her last episode was early December and prior to that August. She noticed significant hair loss with blood work plan to investigate cause. Denies any bald spots but does notice hair thinning. [facility] Medical History (Updated 01/17/25 @ 12:34 by Karolyn Teixeira PA-C) Seizure Pre-eclampsia complicating hypertension No known health problems Surgical History (Updated 01/17/25 @ 11:53 by Karolyn Teixeira PA-C) H/O section Family History (Updated 01/17/25 @ 11:54 by Karolyn Teixeira PA-C) Paternal Grandmother Lung cancer Maternal Grandfather Lung cancer Maternal Grandmother Stomach cancer Paternal Grandfather Stomach cancer Social History Household Members: Spouse and Children Housing: House Alcohol intake: current Patient Tobacco Use Status: Never used Tobacco e-Cigarette/Vaping Use: Never Used Current occupational status: employed Current occupation: [employer] Cognitive needs: No Hearing needs: No Vision needs: No Female Reproductive History Menstrual control method: none Total pregnancies: 2 History of abnormal pap smear: No History of STI: No Questionnaire PHQ-9 Over the last 2 weeks, how often have you been bothered by any of the following problems? 1. Little interest or pleasure in doing things: not at all 2. Feeling down, depressed, or hopeless: not at all 3. Trouble falling or staying asleep, or sleeping too much: not at all 4. Feeling tired or having little energy: several days 5. Poor appetite or overeating: several days 6. Feeling bad about yourself - or that you are a failure or have let yourself or your family down: not at all 7. Trouble concentrating on things, such as reading the newspaper or watching te levision: not at all 8. Moving or speaking so slowly that other people could have noticed. Or the opposite - being so fidgety or restless that you have been moving around a lot more than usual: not at all 9. Thoughts that you would be better off or of hurting yourself in some way: not at all Total score: 2 Depression Screening Interpretation: Negative Depression Screening Done: Yes 09625 - PHQ-9 Billing: Yes Source: Developed by Drs. Aditya Rodriguez, Shefali Shah, Feng Horton and colleagues, with an educational danya from [employer]. Thrive Questionnaire Date Thrive assessed: 01/11/25 I am a: Patient What is your living situation today?: I have a steady place to live Within the past 12 months, did the food you bought not last and you didn't have the money to get more?: Never true Within the past 12 months, did you worry whether your food would run out before you got money to buy more?: Never true Do you have trouble paying for medicines?: No Do you have trouble getting transportation to medical appointments?: No Do you have trouble paying your heating and electricity bill?: No Do you have trouble taking care of your child, family member or friend?: No Do you have trouble with day-to-day activities such as bathing, preparing meals, shopping, managing finances, etc.?: No Are you currently unemployed and looking for a job?: No Are you interested in more education?: I choose not to answer this question Please select the resources that you would like help with: None Currently or been in a relationship where the following occur: No concerns reported THRIVE Score: 0 AUDIT C Alcohol Use Questionnaire (AUDIT-C) 1. How often do you have a drink containing alcohol?: 2-4 times a month 2. How many drinks containing alcohol do you have on a typical day when you are drinking?: 1 or 2 3. How often do you have six or more drinks on one occasion?: Never Total Score: 2 JERAMY-7 AMB Questionnaire JERAMY-7 Date JERAMY - 7 assessed: 01/17/25 Feeling nervous, anxious, or on edge: 0 = Not at all Not being able to stop or control worryin = Not at all Worrying too much about different things: 1 = Several days Trouble relaxin = Not at all Being so restless that it is hard to sit still: 0 = Not at all Becoming easily annoyed or irritable: 0 = Not at all Feeling afraid as if something awful might happen: 0 = Not at all Total JERAMY-7 score (0-4 normal; 5-9 mild; 10-14 moderate; 15-21 severe): 1 Source: Developed by Drs. Aditya Rodriguez, Shefali Shah, Feng Horton and colleagues, with an educational danya from [employer]. Review of Systems Const Denies body aches, Denies chills, Denies fever(s), Denies headache(s) and Denies poor appetite Eyes Reports no additional complaints ENT Denies dizziness and Denies headache(s) Card Reports chest pain (As per HPI), Denies syncope, Denies edema, Denies irregular heart rhythm, Denies lightheadedness and Denies dyspnea Resp Denies cough and Denies dyspnea GI Reports abdominal pain (Epigastric), Denies constipation, Reports dyspepsia, R eports heartburn, Denies diarrhea, Denies nausea and Denies vomiting Reports no additional complaints Musc Reports no additional complaints and Denies abnormal gait Skin/Breast Reports system reviewed and no additional complaints, except as documented Neuro Denies abnormal gait, Denies dizziness, Denies syncope and Denies headache(s) Psych Reports no additional complaints Physical exam (Primary Care) Vital Signs: Last Vital Signs Temp 97.3 F 01/17/25 11:29 Pulse 76 01/17/25 11:29 Resp 18 01/17/25 11:29 BP 100/70 01/17/25 11:29 Pulse Ox 96 01/17/25 11:29 Oxygen Delivery Method Room Air 01/17/25 11:29 BMI result Body Mass Index 42.0 Tobacco/Smoking Status: Tobacco use Status Tobacco use date assessed 01/17/25 01/17/25 11:32 Patient Tobacco Use Status Never used Tobacco 01/17/25 11:43 e-Cigarette/Vaping Use Never Used 01/17/25 11:43 PHQ-9: PHQ-9 Score PHQ-9: Total score 2 01/17/25 11:32 Depression Screening Interpretation: Negative Thrive Assessment: Date of Thrive Assessment Date Thrive assessed 01/11/25 01/17/25 11:32 Currently or been in a relationship where the following occur: No concerns reported Const General: cooperative, healthy appearing, comfortable and no acute distress Orientation/consciousness: patient oriented x3 HENMT Head: Yes normocephalic Ears: hearing grossly normal bilaterally General nose exam: Normal external nose present Eyes General: appearance normal, both eyes and all related structures Conjunctivae: conjunctivae normal Neck Neck: Yes full ROM and Yes no lymphadenopathy Resp Effort & Inspection: normal respiratory effort Auscultation: clear to auscultation bilaterally, no crackles, no rales, no rhonchi and no wheezes Cardio Rate: regular rate Rhythm: regular rhythm GI Palpation (GI): Soft to palpation, not firm and nontender Skin Other: Multiple closed comedones of the face Neuro General: patient oriented x3 Gait exam (Neuro): Normal gait present Extrem General: Yes normal to inspection, Yes full ROM and No edema Psych Affect: normal affect Attitude: cooperative Insight: Good insight present (Psych) Judgement: Good judgement present (Psych) Coding Level of Care Code New Pt Level 4 (80158) Diagnoses Chest discomfort R07.89 Morbid obesity with BMI of 40.0-44.9, adult E66.01; Z68.41 Hair loss L65.9 GERD (gastroesophageal reflux disease) K21.9 Closed comedone L70.0 Additional Codes PHQ-9 - 32001 - PHQ-9 Billing: Yes ([id number]) Assessment & Plan Assessment & Plan (1) Chest discomfort: Code(s): R07.89 - Other chest pain Category: Medical Plan: Patient experiences intermittent episodes of chest discomfort that began with sudden movements and no apparent trigger or pattern. They has been inconsistently and last episode was December and previously August. She will keep a detailed log of the chest discomfort and bring this to her next visit. I also reviewed with her red flag symptoms and when to present for re-evaluation (2) Morbid obesity with BMI of 40.0-44.9, adult: Code(s): E66.01 - Morbid (severe) obesity due to excess calories; Z68.41 - Body mass index [BMI] 40.0-44.9, adult Category: Medical Plan: Healthy diet and regular exercise is encouraged. Discussed multiple options today including phentermine and GLP 1 injections. Patient is requesting phentermine for weight loss. Discussed with the patient risks and side effects this medication and plan to obtain EKG prior to initiation. Once EKG has been completed medication will be sent to pharmacy. Patient understands she needs to follow up every 3 months for weight checks to maintain this prescription. (3) Hair loss: Code(s): L65.9 - Nonscarring hair loss, unspecified Category: Medical Plan: Blood work will investigate potential causes such as vitamin deficiencies or thyroid issues. Biotin supplements are recommended, and a dermatology referral is provided. (4) GERD (gastroesophageal reflux disease): Code(s): K21.9 - Gastro-esophageal reflux disease without esophagitis Category: Medical Plan: Patient describes intermittent symptoms of epigastric burning and nausea consistent with GERD that resolves with Mylanta. Her last episode of acid reflux was several months ago and they do not occur regularly. Avoid trigger foods such as citrus, tomato products, soda, caffeine, spicy foods and other foods that may be irritating to your stomach. Avoid laying flat 3-4 hours after eating and elevate the head of the bed 30 degrees to prevent acid from moving into the esophagus. The patient will avoid dietary triggers and use Mylanta for relief. A preventative medication will be prescribed for use before meals that may trigger symptoms. (5) Closed comedone: Code(s): L70.0 - Acne vulgaris Category: Medical Plan: Referral was placed to Dermatology today. Recommending gentle cleansers this time. Plan During the visit, we discussed the management of acid reflux, including dietary modifications and the use of Mylanta. We also reviewed the patient's history of seizures and preeclampsia, emphasizing the importance of monitoring and weight management to reduce future risks. A symptom journal was recommended for chest pain, and blood work was ordered to investigate hair loss. A dermatology referral was provided, and instructions for managing umbilical discharge were given. Follow-up appointments and further evaluations were planned as needed. This note was constructed using voice recognition software. While every effort has been made to ensure accuracy and machine woodworking sander, still areas may have been included sometimes these areas may affect the content or meeting of the given symptoms. Total time spent caring for the patient today was 30 minutes. This includes time spent before the visit reviewing the chart, time spent during the visit, and time spent after the visit and documentation. Patient was informed and verbally consented to the use of an ambient scribe for clinic note documentation during this visit. Orders: Orders TSH reflex Free T4 Today L65.9 - Nonscarring hair loss, unspecified, Z13.29 - Encounter for screening for other suspected endocrine disorder Vitamin B12 and Folate Today L65.9 - Nonscarring hair loss, unspecified, Z13.21 - Encounter for screening for nutritional disorder Vitamin D 25-OH Total Today L65.9 - Nonscarring hair loss, unspecified, Z13.21 - Encounter for screening for nutritional disorder Comprehensive Met. Panel Today E66.01 - Morbid (severe) obesity due to excess calories, L65.9 - Nonscarring hair loss, unspecified, Z68.41 - Body mass index [BMI] 40.0-44.9, adult IRON PROFILE Today L65.9 - Nonscarring hair loss, unspecified Complete Blood Count Auto Diff Today L65.9 - Nonscarring hair loss, unspecified, Z13.0 - Encounter for screening for diseases of the blood and blood-forming organs and certain disorders involving the immune mechanism Lipid Panel Today E66.01 - Morbid (severe) obesity due to excess calories, Z13.220 - Encounter for screening for lipoid disorders, Z68.41 - Body mass index [BMI] 40.0-44.9, adult ECG 12 lead EKG Today E66.01 - Morbid (severe) obesity due to excess calories, R07.89 - Other chest pain, Z68.41 - Body mass index [BMI] 40.0-44.9, adult Referrals Dermatology Referral L30.9 - Dermatitis, unspecified, L65.9 - Nonscarring hair loss, unspecified Medications: New famotidine 20 mg PO DAILY 30 tabs 0RF
--- OUTSIDE RECORDS SUMMARY | 2025-01-17 13:03 | XMS_ITS | Encounter Summary ---
Author Organization [facility] Address [address] [place], [place] [address] Phone Care Team Providers Care Human Capital Analyst Name Role Phone Unavailable Primary Care Provider Unavailabl e Encounter Details Date Type Department Care Team (Late st Contact Info) Description 05/08/2010 Documentation [facility] [place] [address] [place] [address] Family Medicine, Physician [facility] [place] [address] Social History Tobacco Use Types [...] on filedocumented in this encounter Care Teams Human Capital Analyst Relationship Specialty Start Date End Date [facility] Choker Setter Lab 10/11/18 documented as of this encounter
--- OUTSIDE RECORDS SUMMARY | 2025-01-17 13:03 | XMS_ITS | Encounter Summary ---
Author Organization [facility] Address [address] [place] [address] Phone Care Team Providers Care Product Support Manager Name Role Phone Unavailable Primary Care Provider Unavailabl e Encounter Details Date Type Department Care Team (Late st Contact Info) Description 12/03/2016 Conversion Encounter [facility] - [address] [address] Social History Tobacco Use Types Packs/Day Years [...] on filedocumented in this encounter Care Teams Product Support Manager Relationship Specialty Start Date End Date [facility] Asphalt Engineer Lab 10/11/18 documented as of this encounter
--- OUTSIDE RECORDS SUMMARY | 2025-01-17 13:03 | XMS_ITS | Clinical Summary ---
Author Organization [facility] Address [address] [place], [place] [id number] Phone Care Team Providers Care Master Black Belt Name Role Phone Unavailable Primary Care Provider [...] 8:33 AM EDT): Has 1st appt with [facility] tomorrow History of loss 09/20/2018 Overview (09/20/2018): [...] eval 09/19/18: seen by Dr Perez - [facility] [place] Hematology. Transitioned from apixaban (not the standard [...] Apixaban) has neurology appt at [facility] on 10/13/18 Assessment & Plan (10/06/2018 7:52 [...] of Strabismus/amblyopia, No family history of Sudden /NE under age 55, No family history of [...] 80 10/06/2018 7:45 AM EDT Temperature 36.1 C (96.9 F) 10/06/2018 7:45 AM EDT Respiratory Rate 16 10/06/2018 7:45 AM EDT Oxygen Saturation - - Inhaled Oxygen Concentration - - Weight 91 kg (200 lb 9.6 oz) 10/06/2018 7:45 AM EDT Height 162.6 cm (5' 4 ) 10/06/2018 7:45 AM EDT Body Mass Index 34.43 10/06/2018 7:45 AM EDT Plan of Treatment Health Maintenance Due Date Last Done Comments Influenza Vaccines (#1) 2024 03/14/20 18, 07/12/2017, 01/09/2016, Additional history exists COVID-19 Vaccine ( season) 2024 DTaP,Tdap,and Td Vaccines (8 - Td or [...] complete this topic Procedures * Due to [place] [employer] law, this organization might not be sharing sensitive test results. Procedure Name Priority Date/Time Associated Diagnosis Comments CHLAMYDIA AND GONORRHEA, AMPLIFIED Routine 10/06/2018 8:57 AM EDT Screening examination for bacterial and spirochetal disease from Last 3 Months or Most Recently Relevant to Health Maintenance Results * Due to [place] [employer] law, this organization might not be sharing sensitive test results. * Chlamydia and Gonorrhoea, Amplified (10/06/2018 8:57 AM EDT) Chlamydia Trachomatis, DNA Probe NEGATIVE (NEG) [facility] Comment: No Chlamydia Trachomatis RNA detected in this patient's sample (REFERENCE RANGE/NORMAL VALUE: NOT DETECTED) Note: This test uses intervention analyst- mediated amplification method to detect rRNA from C. Trachomatis URINE GC AMP PROBE NEGATIVE (NEG) [facility] Comment: No Neisseria Gonorrhoeae RNA detected in this patient's sample (REFERENCE RANGE/NORMAL VALUE: NOT DETECTED) NOTE: This test uses intervention analyst-mediated amplification method to detect rRNA from N.Gonorrhoeae. [...] without risk of sexual abuse. Consult the [facility] if needed. Contact [...] Testing performed or reported by [facility], a Service of [facility], [address] [place] [address] Urine 10/06/2018 8:57 AM EDT 10/06/2018 10:17 AM EDT us Brittany Longo MD LAB MICROBIOLOGY - GENERAL ORDER SHRUTHI Final Result [facility] from Last 3 Months or Most Recently Relevant to Health Maintenance Care Teams Master Black Belt Relationship Specialty Start Date End Date [facility] [employer] Machine Tender Lab 10/11/18
--- OUTSIDE RECORDS SUMMARY | 2025-01-17 13:03 | XMS_ITS | Encounter Summary ---
Author Organization [facility] Address [address] [place], [place] [phone] Phone Care Team Providers Care Condominium Association Manager Name Role Phone Unavailable Primary Care Provider Unavailabl e Encounter Details Date Type Department Care Team (Late st Contact Info) Description 03/25/2011 Documentation [facility] [place] Family Medicine [address] [place] [address] Family Medicine, [place] [address] Social History Tobacco Use Types [...] on filedocumented in this encounter Care Teams Condominium Association Manager Relationship Specialty Start Date End Date [facility] Manufacturing Operator Lab 10/11/18 documented as of this encounter
== END 2025-01-17 12:24 | disposition home or self-care (01) ==
LOC: HO.HMCH 11:28
DX: R07.89 Other chest pain (principal); E66.01 Morbid (severe) obesity due to excess calories; Z68.41 Body mass index [BMI] 40.0-44.9, adult; L65.9 Nonscarring hair loss, unspecified; K21.9 Gastro-esophageal reflux disease without esophagitis; L70.0 Acne vulgaris

== ENCOUNTER → 2025-01-17 11:26 | Outpatient (BNVA) | payer OTHER, SELFPAY | DX: K21.9 Gastro-esophageal reflux disease without esophagitis (principal); L65.9 Nonscarring hair loss, unspecified; R07.89 Other chest pain; E66.01 Morbid (severe) obesity due to excess calories; L70.0 Acne vulgaris; Z68.41 Body mass index [BMI] 40.0-44.9, adult | CPT/HCPCS: 96127; 99202 ==

== ENCOUNTER 2025-01-19 07:46 | Outpatient (REF) | payer OTHER, SELFPAY ==
--- OUTSIDE RECORDS SUMMARY | 2025-01-19 07:49 | XMS_ITS | Encounter Summary ---
Author Organization [facility] Address [address] [place], [place] [phone] Phone Care Team Providers Care Log Deck Tender Name Role Phone Unavailable Primary Care Provider Unavailabl e Encounter Details Date Type Department Care Team (Late st Contact Info) Description 03/25/2011 Documentation [facility] [place] [address] [place] [address] Family Medicine, Physician [facility] [place] [address] Social History Tobacco Use Types [...] on filedocumented in this encounter Care Teams Log Deck Tender Relationship Specialty Start Date End Date [facility] Ict Development Manager Lab 10/11/18 documented as of this encounter
--- OUTSIDE RECORDS SUMMARY | 2025-01-19 07:49 | XMS_ITS | Encounter Summary ---
Author Organization [facility] Address [address] [place] [address] Phone Care Team Providers Care Data Conversion Analyst Name Role Phone Unavailable Primary Care Provider Unavailabl e Encounter Details Date Type Department Care Team (Late st Contact Info) Description 12/03/2016 Conversion Encounter [facility] - [address] [address] Social History Tobacco Use Types Packs/Day Years [...] on filedocumented in this encounter Care Teams Data Conversion Analyst Relationship Specialty Start Date End Date [facility] [employer] Facilitator Lab 10/11/18 documented as of this encounter
--- OUTSIDE RECORDS SUMMARY | 2025-01-19 07:49 | XMS_ITS | Clinical Summary ---
Author Organization [facility] Address [address] [place], [place] [phone] Phone Care Team Providers Care Shellfish Grower Name Role Phone Unavailable Primary Care Provider [...] 8:33 AM EDT): Has 1st appt with [facility] tomorrow History of loss 09/20/2018 Overview (09/20/2018): [...] eval 09/19/18: seen by Dr Perez - [facility] [place]. Transitioned from apixaban (not the standard [...] (Keppra and Apixaban) has neurology appt at [facility] on 10/13/18 Assessment & Plan (10/06/2018 [...] of Strabismus/amblyopia, No family history of Sudden /NH under age 55, No family history of [...] this topic Procedures * Due to [place] [employer] law, this organization might not be sharing sensitive test results. Procedure Name Priority Date/Time Associated Diagnosis Comments CHLAMYDIA AND GONORRHEA, AMPLIFIED Routine 10/06/2018 8:57 AM EDT Screening examination for bacterial and spirochetal disease from Last 3 Months or Most Recently Relevant to Health Maintenance Results * Due to [place] [employer] law, this organization might not be sharing sensitive test results. * Chlamydia and Gonorrhoea, Amplified (10/06/2018 8:57 AM EDT) Chlamydia Trachomatis, DNA Probe NEGATIVE (NEG) [facility] Comment: No Chlamydia Trachomatis RNA detected in this patient's sample (REFERENCE RANGE/NORMAL VALUE: NOT DETECTED) Note: This test uses flask maker- mediated amplification method to detect rRNA from C. Trachomatis URINE GC AMP PROBE NEGATIVE (NEG) [facility] Comment: No Neisseria Gonorrhoeae RNA detected in this patient's sample (REFERENCE RANGE/NORMAL VALUE: NOT DETECTED) NOTE: This test uses flask maker-mediated amplification method to detect rRNA from N.Gonorrhoeae. [...] without risk of sexual abuse. Consult the [facility] if needed. Contact phone number . Therapeutic failure or success cannot be determined with the Aptima Combo2 assay since nucleic acid may persist following appropriate antimicrobial therapy. The Centers for Disease Control and Prevention (CDC) recommends confirmatory retesting using culture or a different nucleic acid amplification test when positive results occur, if indicated. Testing performed or reported by [facility], a Service of [facility], [address] [place] [address] Urine 10/06/2018 8:57 AM EDT 10/06/2018 10:17 AM EDT us Brittany Longo MD LAB MICROBIOLOGY - GENERAL ORDER SHRUTHI Final Result [facility] from Last 3 Months or Most Recently Relevant to Health Maintenance Care Teams Shellfish Grower Relationship Specialty Start Date End Date [facility] Cad Cam Programmer Lab 10/11/18
--- OUTSIDE RECORDS SUMMARY | 2025-01-19 07:49 | XMS_ITS | Encounter Summary ---
Author Organization [facility] Address [address] [place], [place] [id number] Phone Care Team Providers Care Immigration Attorney Name Role Phone Unavailable Primary Care Provider Unavailabl e Encounter Details Date Type Department Care Team (Late st Contact Info) Description 05/08/2010 Documentation [facility] Family Medicine [address] [place] [address] Family Medicine, Physician [facility] [place] [address] Social History Tobacco Use Types [...] on filedocumented in this encounter Care Teams Immigration Attorney Relationship Specialty Start Date End Date [facility] Fitting [facility] 10/11/18 documented as of this encounter
--- NOTE | 2025-01-19 07:51 | ECG_ITS ---
Test Reason : R07.89 - Other chest pain Blood Pressure : */* mmHG Vent. Rate : 74 BPM Atrial Rate : 74 BPM P-R Int : 172 ms QRS Dur : 82 ms QT Int : 392 ms P-R-T Axes : 27 5 19 degrees QTcB Int : 435 ms Normal sinus rhythm Normal ECG No previous ECGs available Referred By: Karolyn Teixeira Electronically Signed By: CHAD DONIS
[2025-01-19 08:01] LABS: MANUAL DIFF FLAG NO
[2025-01-19 08:25] LABS: Hematocrit 40.1 % (37.0-47.0); Hemoglobin 13.0 g/dl (12.0-16.0); Imm Gran Abs Auto 0.03 X10*3/uL (0.00-0.03); Imm Gran Pct Auto 0.4 % (0.0-0.4); Lymphocytes Absolute Auto 2.0 X10*3/uL (1.2-4.9); Mean Corpuscular HGB Conc 32.4 g/dl (31.0-35.0); Mean Corpuscular Hemoglobin 27.7 pg (27.0-33.0); Mean Corpuscular Volume 85.3 fL (80.0-98.0); NRBC Abs Auto 0.000 X10*3/uL (0.0-0.012); NRBC Pct Auto 0.0 /100WBC (0.0-0.2); Platelet Count 246 X10*3/uL (160-400); Red Blood Count 4.70 X10*6/uL (4.20-5.50); White Blood Count 7.4 X10*3/uL (4.8-10.8)
[2025-01-19 09:11] LABS: Alanine Aminotransferase 23 U/L (0-31); Albumin Level 4.4 g/dL (3.5-5.0); Alkaline Phosphatase 104 U/L (39-117); Anion Gap 12 (12-20); Aspartate Amino Transferase 21 U/L (5-31); Blood Urea Nitrogen 9 mg/dL (9-16); Calcium 9.4 mg/dL (8.4-10.2); Carbon Dioxide 28 mmol/L (22-29); Chloride 107 mmol/L (96-108); Cholesterol 193 mg/dL (<200); Estimated Glomerular Filt Rate > 60; HDL Cholesterol 39 mg/dL (>40); Iron 55 mcg/dL (30-160); Percent Iron Saturation 20 % (15-50); Potassium 4.5 mmol/L (3.3-5.1); Sodium 142 mmol/L (135-145); Total Iron Binding Capacity 282 mcg/dL (228-428); Total Protein 7.2 g/dL (6.5-8.0); Triglycerides 90 mg/dL (<150); Unsaturated Iron Binding 227 ug/dL
[2025-01-19 09:27] LABS: Folate 9.8 ng/mL (> or = 4.0); Vitamin B12 269 pg/mL (200-900)
== END 2025-01-19 07:47 | disposition home or self-care (01) ==
LOC: HO.LAB 07:46
DX: Z13.220 Encounter for screening for lipoid disorders (principal); Z13.29 Encounter for screening for other suspected endocrine disorder; Z13.21 Encounter for screening for nutritional disorder; Z13.0 Encounter for screening for diseases of the blood and blood-forming organs and certain disorders involving the immune mechanism; E66.01 Morbid (severe) obesity due to excess calories; Z68.41 Body mass index [BMI] 40.0-44.9, adult; L65.9 Nonscarring hair loss, unspecified; R07.89 Other chest pain
CPT/HCPCS: 36415; 80053; 80061; 82306; 82607; 82746; 83540; 84443; 85025; 93005

== ENCOUNTER → 2025-01-19 07:51 | Outpatient (BNV) | payer OTHER, SELFPAY | PROVIDERS: Visit Provider Internal Medicine | DX: R07.89 Other chest pain (principal) | CPT/HCPCS: 93010 ==